=== PATIENT | female | born 1995 | race Caucasian/White ===

== ENCOUNTER → 2023-07-16 | Outpatient (CLI) | payer OTHER, SELFPAY ==
[2023-07-16 10:45] LABS: PTHIN 49.5 pg/mL (18.4-80.1)
[2023-07-16 11:59] LABS: T4 Free Direct 0.87 ng/dL (0.76-1.46)
[2023-07-17 04:07] LABS: Thyroid Peroxidase AB 10 IU/mL (0-34)
[2023-07-20 11:08] LABS: Anti-Nuclear Antibody Test Negative (.)
== END | disposition home or self-care (01) ==
PROVIDERS: PCP Family Medicine; Referring Provider Physician Assistant Medical; Visit Provider Physician Assistant Medical
DX: L50.1 Idiopathic urticaria (principal); L50.3 Dermatographic urticaria
CPT/HCPCS: 36415; 83970; 84439; 84443; 86038; 86376

== ENCOUNTER 2024-11-19 20:47 | Emergency (ER) | payer OTHER, SELFPAY ==
[2024-11-19 20:48] VITALS: BP 110/62; PULSE 66; RESP 16; TEMP 36.8; O2SAT 98; BMI 22.0
[2024-11-19] MEDS: 0.9% Normal Saline (1000mL) 1,000 ML 999 ML IV (21:21)
--- OUTSIDE RECORDS SUMMARY | 2024-11-19 21:22 | XMS RPT_ITS | CCD ---
Author Organization [facility] Care Team Providers Care Driver Trainee Name Role Phone ROMEROZHEN ArreolaRY T Consulting Unavailable ROMERO, ANALY T Primary Care Unavailable ROMERO, ANALY T Admitting Unavailable ROMERO, ANALY T Attending Unavailable PROVIDER, UNKNOWN Consulting Unavailable PROVIDER, UNKNOWN Consulting Unavailable PROVIDER, UNKNOWN Consulting Unavailable MARYAM BLUNT CNM Attending Unavailable ROMERO, ANALY T Consulting Unavailable MARYAM BLUNTM Primary Care Unavailable MARYAM BLUNT CNM Admitting Unavailable PROVIDER, UNKNOWN Consulting Unavailable PROVIDER, UNKNOWN Consulting Unavailable PROVIDER, UNKNOWN Consulting Unavailable MARYAM BLUNT CNM Admitting Unavailable MARYAM BLUNT CNM Attending Unavailable ROMERO, ANALY T Consulting Unavailable DOMINIQUE BLUNTLY CNM Primary Care Unavailable PROVIDER, UNKNOWN Consulting Unavailable PROVIDER, UNKNOWN Consulting Unavailable PROVIDER, UNKNOWN Consulting Unavailable DOMINIQUE BLUNTLY DERICK Attending Unavailable ROMERO, ANALY T Consulting Unavailable MARYAM BLUNTM Primary Care Unavailable MARYAM BLUNT CNElizabeth Admitting Unavailable PROVIDER, UNKNOWN Consulting Unavailable PROVIDER, UNKNOWN Consulting Unavailable PROVIDER, UNKNOWN Consulting Unavailable Yuri Mata Attending Unavailable Yuri Mata Attending Unavailable Romero, Analy Primary Care Unavailable Modesto Orlando Attending Unavailable Modesto Orlando Referring Unavailable Allergies Allergy Classification Reported Allergen(s) Allergy Type Date of Onset Reaction(s) Facility (1 source) levothyroxine Drug Allergy [facility] Repository (1 source) levothyroxine Drug Allergy 02-11-2023 Rash [facility] (1 source) levothyroxine Drug Allergy 02-11-2023 [facility] Repository Medications Current Medications Medication Drug Class(es) Dates Sig (Normalized) Sig (Original) Methylprednisolone (1 source) Corticosteroid Start: 3 Methylprednisolone Active 0 PO per package directions February 11, 2023 12:00am PO PER PKG DIR predniSONE 10 mg oral tablet (1 source) Start: take 40 mg by mouth once daily, then take 30 mg by mouth once daily, then take 20 mg by mouth once daily, then take 10 mg by mouth once daily Prednisone Active 0 PO DAILY February 17, 2023 12:00am 40 mg PO daily x 3 days, 30 mg PO daily x 3 days, 20 mg PO daily x 3 days, 10 mg PO daily x 3 days Problems Active Problems Problem Classification Problem Date Documented Date Episodic/Chronic Abdominal pain (2 sources) Right upper quadrant pain; Translations: [Right upper quadrant pain] Onset: 04-09-2022 Episodic Allergic reactions (3 sources) Acute urticaria; Translations: [Other urticaria] Onset: 02-17-2023 02-11-2023 Episodic Biliary tract disease (1 source) Calculus of gallbladder without cholecystitis without obstruction; Translations: [Calculus of gallbladder without cholecystitis without obstruction] Onset: 04-09-2022 Episodic Past or Other Problems Problem Classification Problem Date Documented Da te Episodic/Chronic Other and delivery including normal (3 sources) Encounter for supervision of normal , unspecified, third trimester; Translations: [Encounter for supervision of normal , unspecified, third trimester] Onset: 07-30-2021 Episodic Residual codes; unclassified (1 source) 36 weeks gestation of ; Translations: [36 weeks gestation of ] Onset: 07-30-2021 Episodic Residual codes; unclassified (3 sources) Other specified health status; Translations: [Other specified health status] Onset: 06-04-2021 Episodic Results Test Name Value Interpretation Reference Range Facility Antinuclear Antibody, IFAon 07-20-2023 SILVERIO, IFA Negative Normal . [facility] Comment on above: Result Comment: Nega tive <1:80 Borderline 1:80 Positive >1:80 ICAP nomenclature: AC-0 For more information about Hep-2 cell patterns use ANApatterns.org, the official website for the International Consensus on Antinuclear Antibody (SILVERIO) Patterns (ICAP). Performed at: [facility] Lab[address] [id number] [employer] Operator: Marcus Asif PhD, Phone: [phone] Performed By: #### L 6468.1311, O8255.7923, L501.9520, L506.0400, L509.1000 #### [facility] [address] [place], [address] Thyroid Peroxidase ABon 07-02 THYR PEROX AB 10 IU/mL Normal 0-34 [facility] Comment on above: Result Comment: Perf ormed at: [facility] [address], [place] [id number] [employer] Operator: Marcus Asif PhD, Phone: [phone] Performed By: #### L 3100.7950, L3300.6900, L501.9520, L506.0400, L509.1000 #### [facility] [address] [place], [address] No Panel InformationOrdered By: Modesto Sánchez on 07-16-2023 Anti-Nuclear Antibody Screen Negative . [facility] Comment on above: Negative <1:80 Borde rline 1:80 Positive >1:80ICAP nomenclature: AC-0For more information about Hep-2 cell patterns useANApatterns.org, the official website for theInternational Consensus on Antinuclear Antibody (SILVERIO)Patterns (ICAP).Performed at: [facility], [place] [id number] Director: Marcus Asif PhD, Phone: [phone] Parathyroid Hormone (Intact) 49.5 pg/mL 18.4-80.1 [facility] PTHINon 07-16-2023 PTH 49.5 pg/mL Normal 18.4-80.1 [facility] Comment on above: Performed By: #### L 3100.7950, L3300.6900, L501.9520, L506.0400, L509.1000 #### [facility] [address] [place], [place], [id number] Serum or plasma thyroid stim ulating hormone (TSH) measurement (units/volume)Ordered By: Modesto Sánchez on 07-16-2023 TSH Qn 2.00 uIU/mL 0.358-3.74 [facility] Serum or plasma thyroperoxid ase antibody assay (units/volume)Ordered By: Modesto Sánchez on 07-16-2023 TPO Ab Qn 10 [IU]/mL 0-34 [facility] Comment on above: Performed at: [address] [id number] Director: Marcus Asif PhD, Phone: [phone] T4 Free Directon 07-16-2023 T4 FREE DIRECT 0.87 ng/dL Normal 0.76-1.46 [facility] Comment on above: Performed By: #### L 3100.7950, L3300.6900, L501.9520, L506.0400, L509.1000 #### [facility] [address] [place], [place], [address] Thin prep Papanicolaou smear with manual screeningOrdered By: Modesto Sánchez on 07-16-2023 Thin prep Papanicolaou smear with manual screening 0.87 ng/dL 0.76-1.46 [facility] Thyroid Stim Hormone (TSH)on 07-16-2023 TSH 2.00 uIU/mL Normal 0.358-3.74 [facility] Comment on above: Performed By: #### L 3100.7950, L3300.6900, L501.9520, L506.0400, L509.1000 #### [facility] [address] [place], [place], [address] Urgent Care Visit Reporton 1 Urgent Care Visit Report [facility] [address], [address] [place], [place] [address] OFFICE VISIT Date of Service: 02/17/23 MR#: [id number] Acct: [id number] Name: RADHA GUIDRY ANN Rep #: [id number] : 1995 Provider: SARBJIT Berger Age/Sex: 27/F Location: [facility] Status: Signed Intake Vital Signs 02/11/23 08:29 02/17/23 06:39 Height 1.57 m 1.57 m Weight: 50.802 kg 50.349 kg BMI 20.5 20.2 BP 102/68 103/66 Blood Pressure Location Rt brachial Lt brachial Position Sitting Sitting Pulse 77 68 Pulse Source Monitor Monitor Temp 98.4 F 98.2 F Temp Source Temporal Temporal Pulse Oximetry (%) 97 99 Intake Visit Reasons: NEEDS DIF MED TO ALLERGIC REACTION Chief Complaint: rash back of neck. Allergies levothyroxine Allergy (Mild, Verified 02/11/23 08:39) Rash HPI HPI Chief Complaint: rash back of neck. Details: RADHA GUIDRY, is a 27 F who presents to the office today for rash. She was diagnosed with hives due to allergic reaction to a cleanse she had started. She stopped the cleanse and took a course of solumedrol with some benadryl to help with the itching. She improved but since finishing the medrol dose pack the rash has returned. She notes it is not as bad since she does not have to use as much benadryl. She mostly has it on the back of her neck, some on the left arm, left cheek in the hairline. She has no pain. She has no drainage. She denies other new medications or allergens, and insists she is not using any part of the cleanse anymore. ROS Const Constitutional: No chills, fatigue or fever(s) ENT ENT: No lip swelling, tongue swelling or throat swelling Skin Skin: Positive for redness and rash; No skin pain or wounds Endo Endocrine: No fatigue Aller/Imm Allergy/Immunologic: No lip swelling, throat swelling or tongue swelling Exam Const General: cooperative, healthy appearing, comfortable, no acute distress, well developed and well groomed Nutritional Appearance: average body habitus and well nourished Orientation: alert, awake and oriented x3 [facility] Head: normocephalic and atraumatic Resp Effort Inspection: normal respiratory effort, able to speak in complete sentences, symmetric chest movement and no cough Skin Other: slightly raised, irregular annular lesions, mildly erythematous, blanching. present on back of neck, forearm, left cheek hairline. no drainage, no increased warmth. Coding Level of Care Code Off vis,est,level 3 Diagnoses Acute urticaria L50.8 Assessment and Plan Assessment and Plan (1) Acute urticaria: Status: Acute Plan: improved with medrol dose pack but starting to come back. she denies using any more of the cleanse. at this point will place on prednisone taper. pt given referral to derm - if this does not resolve or comes back, then follow up with derm. Orders: Referrals Dermatology L50.8 - Other urticaria Medications: New prednisone 40 mg PO daily x 3 days, 30 mg PO daily x 3 days, 20 mg PO daily x 3 days, 10 mg PO daily x 3 days 30 tabs 0RF 02/17/23 0650 Date Yuri SCHAFFER Cosigner Signature: Date (if applicable) CC: Normal [facility] Urgent Care Visit Reporton 1 Urgent Care Visit Report [facility] [address], [address] [place] [address] OFFICE VISIT Date of Service: 02/11/23 MR#: [id number] Acct: [id number] Name: RADHA GUIDRY Rep #: [id number] : 1995 Provider: SARBJIT Berger Age/Sex: 27/F Location: [facility] Status: Signed Intake Vital Signs 02/11/23 08:29 Height 1.57 m Weight: 50.802 kg BMI 20.5 BP 102/68 Blood Pressure Location Rt brachial Position Sitting Pulse 77 Pulse Source Monitor Temp 98.4 F Temp Source Temporal Pulse Oximetry (%) 97 Intake Visit Reasons: BUMPS ON BACK OF NECK Chief Complaint: rash back of neck. Allergies levothyroxine Allergy (Mild, Verified 02/11/23 08:39) Rash Medications methylprednisolone 4 mg tablets in a dose pack See Rx Instructions PO PER PKG DIR #21 tabs 02/11/23 [Rx Confirmed 02/11/23] HPI HPI Chief Complaint: rash back of neck. Details: RADHA GUIDRY, is a 27 F who presents to the office today for rash on the back of neck. This began after she started a cleanse that she ordered out of a catalogue the specifics she does not have available, however it involved a dietary shake along with a pill to promote bowel movements. Cleanse involved 21 days on, 21 off, 21 back on. Rash began during the first 21 days - she was using both the shake and pill. It is a diffuse maculopapular rash that is slightly raised and slightly red, highly pruritic, no drainage. It was all over the body and would come and go throughout the day. On the second round of cleanse she did not restart the bowel pill, but the rash came back. Currently it is only present on the back of her neck, but she notes that as it comes and goes during the day it could easily be on or off the neck and somewhere else by the end of the day. She took benadryl which helps get rid of the rash short term. She did not complete the second 21 days of cleanse and threw everything away. ROS Const Constitutional: No chills, fatigue or fever(s) ENT ENT: No tongue swelling or throat swelling Resp Respiratory: No shortness of breath or wheezing Skin Skin: Positive for redness, itchy eyes and rash; No wounds Endo Endocrine: No fatigue Aller/Imm Allergy/Immunologic: Positive for itchy eyes; No throat swelling, tongue swelling or wheezing Exam Const General: cooperative, healthy appearing, comfortable, no acute distress, well developed and well groomed Nutritional Appearance: average body habitus and well nourished Orientation: alert, awake and oriented x3 [facility] Head: normocephalic and atraumatic Resp Effort Inspection: normal respiratory effort, able to speak in complete sentences, symmetric chest movement and no cough Auscultation: Bilateral: Clear to Auscultation Cardio Rate: regular rate Rhythm: regular rhythm Heart Sounds: no murmurs Skin Other: hives back and sides of neck Coding Level of Care Code Off vis,new,level 3 Diagnoses Acute urticaria L50.8 Assessment and Plan Assessment and Plan (1) Acute urticaria: Status: Acute Plan: Development corresponds to using this cleanse. It is itchy and appears as hives. I explained that it would be difficult to identify a specific inciting agent. She has since discontinued all components of the cleanse. Do not resume. She has had improvement with benadryl futher indicating that this is an allergic reaction. Rash is mild at this point. Start medrol dose pack. If ongoing issues in 1 week will refer to derm. If worsening go to the ER. Medications: New methylprednisolone PO PER PKG DIR 21 tabs 0RF 02/11/23 0900 Date Yuri Proctor Signature: Date (if applicable) CC: Normal [facility] US RUQ (GB/PANCREAS)on 04-09 US RUQ (GB/PANCREAS) [place] [address] Patient: RADHA GUIDRY Phone#: : 1995 Age: 27 Gender: F Pt. Type: Out Account: [id number] Location: [facility] Ordering: ANALY ROMERO Exam Date: 04/09/2022/7:55 Family Phys: Charge Code: 376310 Physician: Shannon Order #: [id number] Dose#: PROCEDURE: RUQ (GB) ULTRASOUND COMPARISON: None. INDICATIONS: Abdominal pain FINDINGS: LIVER: Normal. Normal size and echotexture. No significant masses. BILIARY: Numerous small layering stones in the dependent portion the gallbladder. There is posterior shadowing. A employer relations representative stone measures 0.320.5 cm. Common bile duct measures 0.3 cm. Gallbladder wall measures 0.2 cm. PANCREAS: Normal. No visible mass, abnormal atrophy, or ductal dilatation. RIGHT KIDNEY: Normal. No mass or obstruction. OTHER: Negative. CONCLUSION: 1. Cholelithiasis DICTATED BY: SIA BERUMEN MD ON 04/09/2022 AT 10:28 APPROVED BY: SIA BERUMEN MD ON 04/09/2022 AT 10:30 [facility] CBC + DIFFon 08-29-2021 Baso # 0.00 x10EE3/UL Normal 0.00 - 0.10 [facility] Comment on above: Performed By: #### 2 77599 #### [facility],[address] [place] [address]161 Basophils/100 WBC (Bld) 0.2 % Normal 0.0 - 2.0 [facility] Comment on above: Performed By: #### 2 75075 #### [facility],[address] [place] [address]9420 CBC + DIFF Normal [facility] Comment on above: Result Comment: CBC- COMPLETE BLOOD COUNT Performed By: #### 2 27047 #### [facility],[address] [place] [address] EO # 0.10 x10EE3/UL Normal 0.00 - 0.50 [facility] Comment on above: Performed By: #### 2 82423 #### [facility],[address] [place] [address]205 Eosinophils/100 WBC (Bld) 1.2 % Normal 0.0 - 7.0 [facility] Comment on above: Performed By: #### 2 80706 #### [facility],[address] [place] [address]221 Erythrocyte distribution width (RBC) [Ratio] 13.8 % Normal 12.0 - 15.6 [facility] Comment on above: Performed By: #### 2 23121 #### [facility],[address] [place] [address] 47944 Hematocrit (Bld) [Volume fraction] 28.5 % Low 34.0 - 46.0 [facility] Comment on above: Performed By: #### 2 61364 #### [facility],[address] [place] [address]34 Hemoglobin (Bld) [Mass/Vol] 10.1 g/dL Low 12.0 - 16.0 [facility] Comment on above: Performed By: #### 2 87769 #### [facility],[address] [place] [address] Lymph # 1.20 x10EE3/UL Normal 0.80 - 2.80 [facility] Comment on above: Performed By: #### 2 76425 #### [facility],[address] [place], [place] [id number] Lymphocytes/100 WBC (Bld) 14.1 % Low 20.0 - 45.0 [facility] Comment on above: Performed By: #### 2 25018 #### [facility],[address] [place] [address] MANUAL DIFF N/A Normal [facility] Comment on above: Performed By: #### 2 78789 #### [facility],[address] [place] [address] MCH (RBC) [Entitic mass] 32 pg Normal 27 - 33 [facility] Comment on above: Performed By: #### 2 35713 #### [facility],[address] [place] [address] 05055 MCHC 35 X10 3 Normal 32 - 36 [facility] Comment on above: Performed By: #### 2 78016 #### [facility],[address] [place] [address] 25101 MCV (RBC) [Entitic vol] 91 fL Normal 80 - 99 [facility] Comment on above: Performed By: #### 2 40012 #### [facility],[address] [place] [address] 71192 Toombs # 0.40 x10EE3/UL Normal 0.20 - 1.00 [facility] Comment on above: Performed By: #### 2 97594 #### [facility],[address] [place] [address] 50027 MONOS % 4.4 % Normal 0.0 - 10.0 [facility] Comment on above: Performed By: #### 2 66896 #### [facility],[address] [place] [address] 25467 Morphology Sam (Bld) [Interp] N/A Normal [facility] Comment on above: Performed By: #### 2 32975 #### [facility],[address] [place] [address] 74068 Neut # 7.00 x10EE3/UL Normal 1.50 - 7.10 [facility] Comment on above: Performed By: #### 2 37172 #### [facility],[address] [place] [address] 73750 Neutrophils/100 WBC (Bld) 80.1 % High 46.0 - 76.0 [facility] Comment on above: Performed By: #### 2 75982 #### [facility],[address] [place] [address] 34821 PLATELET 170 x10EE3/UL Normal 150 - 450 [facility] Comment on above: Performed By: #### 2 62318 #### [facility],[address] [place] [address] 41705 Platelet mean volume (Bld) [Entitic vol] 8.2 fL Normal 6.6 - 10.5 [facility] Comment on above: Result Comment: AUTO MATED DIFFERENTIAL Performed By: #### 2 02616 #### [facility],[address] [place] [address] 74546 RBC 3.12 x 10EE6/UL Low 4.10 - 5.30 [facility] Comment on above: Performed By: #### 2 62533 #### [facility],[address] [place] [address] 68534 WBC 8.8 x 10EE3/UL Normal 4.5 - 10.8 [facility] Comment on above: Performed By: #### 2 43959 #### [facility],[address] [place] [address] 91776 BB TYPE & SCREENon 2 ABO A Normal [facility] Comment on above: Performed By: #### 2 06740 #### [facility],[address] [place] [address] 82685 ANTIBODY SCR Negative Normal [facility] Comment on above: Performed By: #### 2 45050 #### [facility],[address] [place] [address] 85915 BB TYPE & SCREEN Normal [facility] Comment on above: Result Comment: TYPE , Rh, AND SCREEN Performed By: #### 2 51137 #### [facility],[address] [place] [address] 11008 Rh Nom (Bld) Positive Normal [facility] Comment on above: Performed By: #### 2 44790 #### [facility],[address] [place], [place] [id number] CBC + DIFFon 08-28-2021 Baso # 0.00 x10EE3/UL Normal 0.00 - 0.10 [facility] Comment on above: Performed By: #### 2 31305 #### [facility],[address] [place] [address] 72181 Basophils/100 WBC (Bld) 0.4 % Normal 0.0 - 2.0 [facility] Comment on above: Performed By: #### 2 54622 #### [facility],[address] [place] [address] 84324 CBC + DIFF Normal [facility] Comment on above: Result Comment: CBC- COMPLETE BLOOD COUNT Performed By: #### 2 08447 #### [facility],[address] [place] [address] 33959 EO # 0.20 x10EE3/UL Normal 0.00 - 0.50 [facility] Comment on above: Performed By: #### 2 03936 #### [facility],[address] [place] [address] 34197 Eosinophils/100 WBC (Bld) 1.8 % Normal 0.0 - 7.0 [facility] Comment on above: Performed By: #### 2 05039 #### [facility],[address] [place] [address] Erythrocyte distribution width (RBC) [Ratio] 13.4 % Normal 12.0 - 15.6 [facility] Comment on above: Performed By: #### 2 50645 #### [facility],[address] [place] [address] Hematocrit (Bld) [Volume fraction] 34.9 % Normal 34.0 - 46.0 [facility] Comment on above: Performed By: #### 2 52319 #### [facility],[address] [place] [address] Hemoglobin (Bld) [Mass/Vol] 12.1 g/dL Normal 12.0 - 16.0 [facility] Comment on above: Performed By: #### 2 54682 #### [facility],[address] [place] [address] Lymph # 1.80 x10EE3/UL Normal 0.80 - 2.80 [facility] Comment on above: Performed By: #### 2 84764 #### [place] [address] Lymphocytes/100 WBC (Bld) 21.2 % Normal 20.0 - 45.0 [facility] Comment on above: Performed By: #### 2 06185 #### [place] [id number] MANUAL DIFF N/A Normal [facility] Comment on above: Performed By: #### 2 84477 #### [place] [address] MCH (RBC) [Entitic mass] 32 pg Normal 27 - 33 [facility] Comment on above: Performed By: #### 2 52103 #### [place] [address] MCHC 35 X10 3 Normal 32 - 36 [facility] Comment on above: Performed By: #### 2 24501 #### [facility],[address] [place] [address] MCV (RBC) [Entitic vol] 91 fL Normal 80 - 99 [facility] Comment on above: Performed By: #### 2 52360 #### [facility],[address] [place] [address] Toombs # 0.50 x10EE3/UL Normal 0.20 - 1.00 [facility] Comment on above: Performed By: #### 2 96348 #### [place] [address] MONOS % 5.7 % Normal 0.0 - 10.0 [facility] Comment on above: Performed By: #### 2 47977 #### [place] [address] Morphology Sam (Bld) [Interp] N/A Normal [facility] Comment on above: Performed By: #### 2 79924 #### [place] [address] Neut # 6.00 x10EE3/UL Normal 1.50 - 7.10 [facility] Comment on above: Performed By: #### 2 03740 #### [place] [address] Neutrophils/100 WBC (Bld) 70.9 % Normal 46.0 - 76.0 [facility] Comment on above: Performed By: #### 2 89171 #### [place] [address] PLATELET 162 x10EE3/UL Normal 150 - 450 [facility] Comment on above: Performed By: #### 2 16407 #### [facility],[address] [place] [address] Platelet mean volume (Bld) [Entitic vol] 8.2 fL Normal 6.6 - 10.5 [facility] Comment on above: Result Comment: AUTO MATED DIFFERENTIAL Performed By: #### 2 48439 #### [facility],[address] [place] [address] RBC 3.83 x 10EE6/UL Low 4.10 - 5.30 [facility] Comment on above: Performed By: #### 2 40733 #### [facility],[address] [place] [address] WBC 8.4 x 10EE3/UL Normal 4.5 - 10.8 [facility] Comment on above: Performed By: #### 2 52043 #### [facility],[address] [place], [place] [id number] CULTURE GBS SCREENo n 07-30-2021 CULTURE GBS SCREEN CULTURE GBS SCREEN _VAGINAL GROUP B STREP CULTURE_ M I C R O B I O L O G Y R E P O R T FINAL Antimicrobial Susceptibility and Organism Identification Report Specimen Number : [id number] Requested : 07/30/21 Specimen Source : VAGINAL Collected : 07/30/21 09:55 [place] of Isolation : OUTPATIENT Received : 07/30/21 09:55 Requesting Physician : MERLENE CLAYTON ------ Patient/Specimen Tests and Comments Specimen Comments FINAL REPORT: NEGATIVE FOR GROUP B BETA STREP ------ Tech : Source : VAGINAL ID # : [id number] FINAL Report Date : / / : Collected : 07/30/21 09:55 08/02/21.1338.BKO. 08/01/21.1144.CWB. 08/02/21.1338.[employer].y prime PLETE Normal [facility] Comment on above: Performed By: #### 2 07035 #### [address] [address] CBC + DIFFon 06-04-2021 Baso # 0.00 x10EE3/UL Normal 0.00 - 0.10 [facility] Comment on above: Performed By: #### 2 99883 #### [address] [address] Basophils/100 WBC (Bld) 0.4 % Normal 0.0 - 2.0 [facility] Comment on above: Performed By: #### 2 27845 #### [address] [place] [address] CBC + DIFF Normal [facility] Comment on above: Result Comment: CBC- COMPLETE BLOOD COUNT Performed By: #### 2 83424 #### [facility],[address] [place] [address] EO # 0.10 x10EE3/UL Normal 0.00 - 0.50 [facility] Comment on above: Performed By: #### 2 95154 #### [facility],[address] [place] [address] Eosinophils/100 WBC (Bld) 1.8 % Normal 0.0 - 7.0 [facility] Comment on above: Performed By: #### 2 48227 #### [facility],[address] [place] [address] Erythrocyte distribution width (RBC) [Ratio] 13.8 % Normal 12.0 - 15.6 [facility] Comment on above: Performed By: #### 2 07283 #### [facility],[address] [place] [address] Hematocrit (Bld) [Volume fraction] 35.2 % Normal 34.0 - 46.0 [facility] Comment on above: Performed By: #### 2 33020 #### [facility],[address] [place] [address] Hemoglobin (Bld) [Mass/Vol] 12.1 g/dL Normal 12.0 - 16.0 [facility] Comment on above: Performed By: #### 2 69412 #### [facility],[address] [place] [address] Lymph # 1.30 x10EE3/UL Normal 0.80 - 2.80 [facility] Comment on above: Performed By: #### 2 44487 #### [facility],[address] [place] [address] Lymphocytes/100 WBC (Bld) 19.7 % Low 20.0 - 45.0 [facility] Comment on above: Performed By: #### 2 62949 #### [facility],[address] [place] [address] MANUAL DIFF N/A Normal [facility] Comment on above: Performed By: #### 2 21717 #### [facility],[address] [place] [address] MCH (RBC) [Entitic mass] 32 pg Normal 27 - 33 [facility] Comment on above: Performed By: #### 2 64181 #### [facility],[address] [place] [address] MCHC 35 X10 3 Normal 32 - 36 [facility] Comment on above: Performed By: #### 2 01304 #### [facility],[address] [place] [address] MCV (RBC) [Entitic vol] 92 fL Normal 80 - 99 [facility] Comment on above: Performed By: #### 2 29071 #### [facility],[address] [place] [address] Toombs # 0.30 x10EE3/UL Normal 0.20 - 1.00 [facility] Comment on above: Performed By: #### 2 66630 #### [facility],[address] [place] [address] MONOS % 4.1 % Normal 0.0 - 10.0 [facility] Comment on above: Performed By: #### 2 97980 #### [facility],[address] [place] [address] Morphology Sam (Bld) [Interp] N/A Normal [facility] Comment on above: Result Comment: {CD] Performed By: #### 2 29915 #### [facility],[address] [place] [address] Neut # 5.00 x10EE3/UL Normal 1.50 - 7.10 [facility] Comment on above: Performed By: #### 2 46562 #### [facility],[address] [place] [address] Neutrophils/100 WBC (Bld) 74.0 % Normal 46.0 - 76.0 [facility] Comment on above: Performed By: #### 2 29235 #### [facility],[address] [place] [address] PLATELET 186 x10EE3/UL Normal 150 - 450 [facility] Comment on above: Performed By: #### 2 40283 #### [facility],[address] [place] [address] Platelet mean volume (Bld) [Entitic vol] 8.9 fL Normal 6.6 - 10.5 [facility] Comment on above: Result Comment: AUTO MATED DIFFERENTIAL Performed By: #### 2 12088 #### [facility],[address] [place] [address] RBC 3.83 x 10EE6/UL Low 4.10 - 5.30 [facility] Comment on above: Performed By: #### 2 06501 #### [facility],[address] [place] [address] WBC 6.7 x 10EE3/UL Normal 4.5 - 10.8 [facility] Comment on above: Performed By: #### 2 39193 #### [facility],[address] [place] [address] GLUCOSE CHALLENGE 50GM 1 DARIUS Hunter 06-04-2021 Glucose [Mass/Vol] 79 mg/dL Normal 70 - 140 [facility] Comment on above: Performed By: #### 2 47298 #### [facility],[address] [place] [address] GLUCOSE CHALLENGE 50GM 1 HOUR Normal [facility] Comment on above: Result Comment: GLUC OSE CHALLENGE 50 GMS 1 HOUR Performed By: #### 2 77086 #### [facility],[address] [place] [address] Hepatitis B Surf. Agon 02-11 Hepatitis B Surf. Ag NEGAT Normal Negative [facility] Comment on above: Performed By: #### H BSAG, RUBIGG #### [facility] [address] [place], [place] [address] #### RPR #### [facility] [address] [place] [address] RPRon 02-09-2021 Reagin Ab RPR Ql (S) NR Normal Non Reactive [facility] Comment on above: Performed By: #### H BSAG, RUBIGG #### [facility] [address] [place] [address] #### RPR #### [facility] [address] [place] [address] GC/Chlamydia Amp, Uron 02-08 Chlamydia Amplif, Ur Normal [facility] Comment on above: Result Comment: Nega tive for For screening asymptomatic women, a vaginal swab specimen (APTIMA vaginal swab 856906) is optimal. Urine specimens have reduced sensitivity for Chlamydia trachomatis or Neisseria gonorrhoeae infection in female patients without symptoms. This test was developed and its performance characteristics determined by [facility] [place] ([facility]). It has not been cleared or approved by the FDA. [facility] is regulated under CLIA as qualified to perform high complexity testing. This test is used for clinical purposes. It should not be regarded as investigational or for research. Chlamydia For screening asymptomatic women, a vaginal swab specimen (APTIMA vaginal swab 491267) is optimal. Urine specimens have reduced sensitivity for Chlamydia trachomatis or Neisseria gonorrhoeae infection in female patients without symptoms. This test was developed and its performance characteristics determined by [facility] [place] ([facility]). It has not been cleared or approved by the FDA. [facility] is regulated under CLIA as qualified to perform high complexity testing. This test is used for clinical purposes. It should not be regarded as investigational or for research. trachomatis by For screening asymptomatic women, a vaginal swab specimen (APTIMA vaginal swab 407058) is optimal. Urine specimens have reduced sensitivity for Chlamydia trachomatis or Neisseria gonorrhoeae infection in female patients without symptoms. This test was developed and its performance characteristics determined by [facility] [place] ([facility]). It has not been cleared or approved by the FDA. [facility] is regulated under CLIA as qualified to perform high complexity testing. This test is used for clinical purposes. It should not be regarded as investigational or for research. amplification. For screening asymptomatic women, a vaginal swab specimen (APTIMA vaginal swab 521479) is optimal. Urine specimens have reduced sensitivity for Chlamydia trachomatis or Neisseria gonorrhoeae infection in female patients without symptoms. This test was developed and its performance characteristics determined by [facility] and [facility] [place] ([facility]). It has not been cleared or approved by the FDA. [facility] is regulated under CLIA as qualified to perform high complexity testing. This test is used for clinical purposes. It should not be regarded as investigational or for research. Performed By: #### U GCCT #### [facility] [address] [place] [address] GC Amplification, Ur NGNEG Normal [facility] Comment on above: Performed By: #### U GCCT #### [facility] [address] [place] [address] Rubella IgG Antibodyon 02-08 Rubella IgG Ab 2.14 Index Value Normal [facility] Comment on above: Performed By: #### H BSAG, RUBIGG #### [facility] [address] [place] [address] #### RPR #### [facility] [address] [place] [address] Rubella IgG Ab, Qual Positive Abnormal Negative [facility] Comment on above: Performed By: #### H BSAG, RUBIGG #### [facility] [address] [place] [phone] #### RPR #### [facility] [address] [place] [address] Hepatitis B Surf. Agon 02-16 Hepatitis B Surf. Ag NEGAT Normal Negative [facility] Comment on above: Performed By: #### R LA #### [facility] [address] [place] [phone] #### HBSAG, RUBIGG #### [facility] [address] [place] [address] RPRon 02-17-2020 Reagin Ab RPR Ql (S) NR Normal Non Reactive [facility] Comment on above: Performed By: #### R LA #### [facility] [address] [place] [phone] #### HBSAG, RUBIGG #### [facility] [address] [place] [phone] Rubella IgG Antibodyon 02-16 Rubella IgG Ab 2.04 Index Value Normal [facility] Comment on above: Performed By: #### R LA #### [facility] [address] [place] [phone] #### HBSAG, RUBIGG #### [facility] [address] [place] [phone] Rubella IgG Ab, Qual Positive Abnormal Negative [facility] Comment on above: Performed By: #### R LA #### [facility] [address] [place] [address] #### HBSAG, RUBIGG #### [facility] [address] [place] [address] GC/Chlamydia Amp, Uron 02-14 Chlamydia Amplif, Ur Normal [facility] Comment on above: Result Comment: Nega tive for For screening asymptomatic women, a vaginal swab specimen (APTIMA vaginal swab 824308) is optimal. Urine specimens have reduced sensitivity for Chlamydia trachomatis or Neisseria gonorrhoeae infection in female patients without symptoms. This test was developed and its performance characteristics determined by [facility] and [facility] [place] ([facility]). It has not been cleared or approved by the FDA. [facility] is regulated under CLIA as qualified to perform high complexity testing. This test is used for clinical purposes. It should not be regarded as investigational or for research. Chlamydia For screening asymptomatic women, a vaginal swab specimen (APTIMA vaginal swab 019999) is optimal. Urine specimens have reduced sensitivity for Chlamydia trachomatis or Neisseria gonorrhoeae infection in female patients without symptoms. This test was developed and its performance characteristics determined by [facility] and [facility] [place] ([facility]). It has not been cleared or approved by the FDA. [facility] is regulated under CLIA as qualified to perform high complexity testing. This test is used for clinical purposes. It should not be regarded as investigational or for research. trachomatis by For screening asymptomatic women, a vaginal swab specimen (APTIMA vaginal swab 633162) is optimal. Urine specimens have reduced sensitivity for Chlamydia trachomatis or Neisseria gonorrhoeae infection in female patients without symptoms. This test was developed and its performance characteristics determined by [facility] [place] ([facility]). It has not been cleared or approved by the FDA. [facility] is regulated under CLIA as qualified to perform high complexity testing. This test is used for clinical purposes. It should not be regarded as investigational or for research. amplification. For screening asymptomatic women, a vaginal swab specimen (APTIMA vaginal swab 737507) is optimal. Urine specimens have reduced sensitivity for Chlamydia trachomatis or Neisseria gonorrhoeae infection in female patients without symptoms. This test was developed and its performance characteristics determined by [facility] [place] ([facility]). It has not been cleared or approved by the FDA. [facility] is regulated under CLIA as qualified to perform high complexity testing. This test is used for clinical purposes. It should not be regarded as investigational or for research. Performed By: #### U GCCT #### [facility] [address] [place], [place] [address] GC Amplification, Ur NGNEG Normal [facility] Comment on above: Performed By: #### U GCCT #### [facility] [address] [place], [place] [address] Encounters Encounter Date Encounter Type Care Provider Facility Start: 07-16-2023 End: 07-16-2023 ambulatory Analy Romero [facility] Work Phone: Start: 07-16-2023 End: 07-16-2023 Patient encounter procedure [facility], [place] Work Phone: Start: 02-17-2023 End: 02-17-2023 ambulatory Yuri Lynette SCHAFFER Facility:[facility] Start: 02-11-2023 End: 02-11-2023 ambulatory Yuri SCHAFFER Facility:[facility] Start: 04-09-2022 End: 04-09-2022 ambulatory ANALY T ROMERO [facility] Start: 08-28-2021 End: 08-29-2021 Evaluation and management of inpatient [facility] Start: 07-30-2021 End: 07-30-2021 ambulatory [facility] Start: 06-04-2021 End: 06-04-2021 ambulatory [facility] Payers Date Payer Category Payer Unknown [id number] 2023 Self-pay 1995 Unknown [id number] 2.16.84 [id number] 1995 Unknown [id number] 2.16.84 [id number] 1995 Unknown [id number] 2.16.84 [id number] 1995 Unknown [id number] 2.16.84 [id number] Unknown [id number] Unknown Unknown [id number] 2.16.8 [id number] Unknown [id number] 2.16.8 [id number] Unknown [id number] 2.16.8 [id number] Social History Date Type Detail Facility Tobacco smoking stat [facility] Unknown if ever smoked [facility] Work Phone: Start: 1995 Sex Assigned At Female [facility] Evaluation note Note Date & Type Note Facility Evaluation note No assessment information availa ble [facility] Work Phone: Summary Purpose Family History No Family History Records FoundNo Family History Records FoundNo Family History Records Found Advance Directives No Advanced Directives Records FoundNo Advanced Directives Records FoundNo Advanced Directives Records Found Chief Complaint and Reason for Visit Chief Complaint SKIN Additional Source Comments INFORMATION SOURCE (unrecogn ized section and content) DATE CREATED AUTHOR 02/11/2021 [facility] DATE CREATED AUTHOR AUTHOR'S ORGANIZ ATION 04/10/2022 [facility] DATE CREATED AUTHOR AUTHOR'S ORGANIZ ATION 07/22/2023 [facility] Care Teams (unrecognized sec tion and content) Team Status: Active Member Role Status Dates Dr. Analy Romero MD Primary Care Provider Active Team Status: Inactive Member Role Status Dates Dr. Analy Romero MD Primary Care Provider Active SARBJIT Crabtree Attending Provider, Referring Provi estefany Active Goals (unrecognized section and content) Goals may be documented in a n alternate section FOR RECORDS PERTAINING TO PATIENTS WHO ARE OR HAVE BEEN ENROLLED IN A CHEMICAL DEPENDENCY/SUBSTANCEABUSE PROGRAM, SOME INFORMATION MAY BE OMITTED. This clinical summary was aggregated from multiple sources. Caution should be exercised in using it in the provision of clinical care. This summary normalizes information from multiple sources, and as a consequence, information in this document may materially change the coding, format and clinical context of patient data. In addition, data may be omitted in some cases. CLINICAL DECISIONS SHOULD BE BASED ON THE PRIMARY CLINICAL RECORDS. [facility]. provides no warranty or guarantee of the accuracy or completeness of information in this document.
[2024-11-19 21:25] LABS: Hematocrit 36.6 % (37-47); Hemoglobin 12.8 g/dL (12.0-15.0); Immature Granulocytes Count 0.020 X10^3/uL (0.0-0.0); Mean Corp Hgb Conc 35.0 g/dL (32-36); Mean Corpuscular Volume 85.9 fL (81-99); Mean Platelet Vol. 10.0 fl (6.2-12.0); NRBC Flagged by Analyzer 0 % (0-5); Platelet Count 163 K/mm3 (150-450); RBC Distribution Width CV 12.6 % (11.6-14.6); RBC Distribution Width SD 39.4 fl (35.1-43.9); Red Blood Count 4.26 M/mm3 (4.2-5.4); White Blood Count 7.1 K/mm3 (4.4-11.0)
--- NOTE | 2024-11-19 21:37 | EDS_ITS ---
HPI History of Present Illness Chief Complaint: Abd Pain Narrative Narrative: Patient is a 29-year-old female with no known significant past medical history who presents to the emergency department the chief complaint of abdominal pain. States that earlier today she was feeling well and notes that she ate dinner and then developed abdominal pain around 11/07/1929. States that she had nausea at that point in time. At the time of arrival here in the emergency department she states that her symptoms have resolved. Patient states that she took something for poison devon earlier as well. Denies any sick contacts. PFSH PFS Home Medications ?Medication ?Instructions ?Recorded ?Last Taken ?Type dicyclomine 20 mg tablet 20 mg PO TID #30 tabs Unknown Rx ondansetron 4 mg disintegrating 4 mg PO Q6H PRN nausea and 11/19/24 Unknown Rx tablet vomiting #20 tabs Allergy/AdvReac Type Severity Reaction Status Date / Time levothyroxine Allergy Mild Rash Verified 11/19/24 20:48 Family History no significant family his Surgical History Hx of appendectomy Social History Smoking Status: Never smoker ROS ROS ED ROS Narrative Constitutional: Denies any fevers, chills, headaches Cardiovascular: Denies chest pain Respiratory: Denies shortness of breath Abdomen: Complains of abdominal pain and nausea as noted above denies vomiting or diarrhea : Denies any urinary symptoms Neurological: Denies any weakness Musculoskeletal: Denies back pain Skin: Denies any rashes or lesions EXAM Physical Exam Narrative Exam Narrative: General: Patient lying in bed rest comfortably did not appear to be acute distress Head: Atraumatic, normocephalic Eyes: PERRL bilaterally, EOMI bilateral, no conjunctival injection noted Neck: Soft, supple, trachea midline Cardiovascular: Regular rate and rhythm Respiratory: Clear to auscultation bilaterally Abdomen: Soft, nondistended, no tenderness palpation, negative Carlson sign, Extremities: +5/5 strength noted in the bilateral upper and lower extremities, radial pulses +2/4 in the bilateral extremities Neurological: Patient follow commands and that she was at [facility] the year is 2024 Skin: Warm, dry, intact no rashes or lesions noted Const Vital Signs: 11/19/24 20:48 11/19/24 22:48 Temperature 98.3 F Temperature Source Oral Pulse Rate 66 68 Respiratory Rate 16 17 Blood Pressure 110/62 101/64 Blood Pressure Mean 78 76 Pulse Ox 98 98 Oxygen Delivery Method Room Air Room Air MDM MDM MDM Narrative Medical decision making narrative: Patient is a 29-year-old female who presented to the emergency department with a chief complaint of abdominal pain and nausea. On the differential diagnose includes but not limited to acute cholecystitis, pancreatitis, bowel obstruction, viral gastroenteritis, . Once the workup is obtained and reviewed she will be reevaluated. Patient be given a liter of IV fluids. Patient states that she does not have any pain or nausea at this point in time. Patient CBC reviewed and showed no evidence leukocytosis white blood count 7.1, hemoglobin 12.8, plate count of 163. Her sodium is 137, potassium normal 3.3, creatinine was 0.81. Patient's AST and ALT were 45 and 24 respectively. Patient lipase of 70, test was negative. Patient urinalysis reviewed showed no evidence of infection. On reevaluation the patient she is feeling better she would like to go home at this point in time. Repeat abdominal exam was performed at 11:15 PM and her abdomen remains benign. We discussed that if her symptoms were to worsen again she should return to the emergency department otherwise she should follow-up with her doctor in the outpatient setting. She was encouraged to use prescriptions of Zofran and Bentyl as prescribed. She is agreeable this plan as well as significant other all question concerns answered she was discharged home in stable condition. Lab Data Labs: Laboratory Results - last 24 hr 11/19/24 11/19/24 21:13 21:39 WBC 7.1 RBC 4.26 Hgb 12.8 Hct 36.6 L MCV 85.9 MCH 30.0 MCHC 35.0 RDW Std Deviation 39.4 RDW Coeff of [place] 12.6 Plt Count 163 MPV 10.0 Immature Gran % (Auto) 0.300 Neut % (Auto) 66.0 Lymph % (Auto) 17.9 L [place] % (Auto) 7.0 Eos % (Auto) 8.4 H Baso % (Auto) 0.4 Absolute Neuts (auto) 4.7 Absolute Lymphs (auto) 1.26 Nucleated RBC % 0 Sodium 137 Potassium 3.3 Chloride 101 Carbon Dioxide 24.2 Anion Gap 12 BUN 14 Creatinine 0.81 Estim Creat Clear Calc 81.05 Est GFR (MDRD) Non-Af 100 BUN/Creatinine Ratio 17.2 Glucose 118 H Calcium 9.3 Total Bilirubin 0.29 AST 45 H ALT 24 Alkaline Phosphatase 28 L Total Protein 7.2 Albumin 4.4 Globulin 2.8 Albumin/Globulin Ratio 1.6 Lipase 70 Serum , Qual NEGATIVE Urine Color Yellow Urine Clarity Clear Urine pH 8.0 Ur Specific [place] 1.010 Urine Protein 15 H Urine Glucose (UA) Normal Urine Ketones Negative Urine Occult Blood Negative Urine Nitrite Negative Urine Bilirubin Negative Urine Urobilinogen Normal Ur Leukocyte Esterase 25 H Urine RBC 0 SEEN Urine WBC 0 SEEN Ur Squamous Epith Cells 0 SEEN Urine Bacteria 0 SEEN Urine Mucus 0 SEEN Discharge Plan Triage Chief Complaint: Abd Pain ED Provider: Alfonzo Fernandez Dx/Rx/DC Orders Clinical Impression: Abdominal pain, Nausea, History of appendectomy Prescriptions: New ondansetron 4 mg tablet,disintegrating 4 mg PO Q6H PRN (Reason: nausea and vomiting) Qty: 20 0RF dicyclomine 20 mg tablet 20 mg PO TID Qty: 30 0RF Primary Care Provider: Ariel Pizano Referrals: Ariel Pizano MD [Primary Care Provider] - Activity Restrictions/Additional Instructions: Use prescriptions that were sent to her pharmacy as prescribed. Your blood work did not show any acute findings. If your symptoms worsen you should return to the emergency department as we discussed here. Follow-up with your doctor in the outpatient setting as well. Print Language: Divehi Disposition Disposition: Home, Self Care
[2024-11-19 21:48] LABS: Mucous, Urine 0 SEEN /hpf (<or=2+); Red Blood Cells-Urine 0 SEEN /hpf (0-5); Squamous Epithelial Cells - UA 0 SEEN /hpf (5-10)
[2024-11-19 21:51] LABS: Internal QC Validated? YES +Cl - CLEAR BKGD; Pregnancy, Serum, hCG Quali. NEGATIVE Negative; Record Kit Lot#, Serum Preg. 0000962302
[2024-11-19 21:52] LABS: Color, Urine Yellow (Yellow); Glucose, Dipstick Normal (Normal); Ketone-Dipstick Negative (Negative); Leukocyte Esterase-Dipstick 25 /ul (Negative); Nitrite-Dipstick Negative (Negative); Occult Blood-Urine Negative /ul (Negative); Protein-Dipstick 15 mg/dl (Negative); Specific Gravity, Urine 1.010 (1.002-1.030); Urine Bilirubin Dipstick Negative (Negative)
[2024-11-19 22:05] LABS: AST(SGOT) 45 U/L (<=31); Alanine Aminotransfer ALT/SGPT 24 U/L (<=34); Albumin, Serum 4.4 g/dL (3.5-5.0); Alkaline Phosphatase 28 U/L (35-104); Anion Gap 12 (5-15); BUN 14 mg/dL (4-19); BUN/Creat Ratio 17.2 RATIO (10-20); Calcium,Total 9.3 mg/dL (7.6-11.0); Carbon Dioxide 24.2 mmol/L (21.0-32.0); Chloride 101 mmol/L (98-108); Estimated Creatinine Clearance 81.05 ml/min (50-250); Globulin 2.8 g/dL (2.2-4.2); Glucose 118 mg/dL (70-99); Lipase 70 U/L (13-75); Potassium 3.3 mmol/L (3.3-5.1)
[2024-11-19 22:48] VITALS: BP 101/64; PULSE 68; RESP 17; O2SAT 98
[2024-11-19 23:31] VITALS: BP 103/59; PULSE 61; RESP 16; TEMP 36.8; O2SAT 99
== END 2024-11-19 23:35 | disposition home or self-care (01) ==
PROVIDERS: Emergency Provider Emergency Medicine; PCP Family Medicine; Referring Provider Emergency Medicine; Visit Provider Emergency Medicine
DX: R10.9 Unspecified abdominal pain (principal); R11.0 Nausea; Z90.49 Acquired absence of other specified parts of digestive tract
CPT/HCPCS: 80053; 81001; 83690; 84703; 85025; 99284